=== PATIENT | male | born 1995 | race Caucasian/White ===

== ENCOUNTER 2017-06-05 22:25 | Emergency (ER) | payer OTHER ==
[2017-06-06] MEDS ORDERED: Lidocaine 1% PF 5 ML VIAL ONE (01:05)
[2017-06-06] MEDS ORDERED: Ibuprofen 600 MG TAB ONE (01:44)
== END 2017-06-06 01:58 | disposition home or self-care (01) ==
LOC: SCSER 22:25
DX: L03.012 Cellulitis of left finger (principal); L02.512 Cutaneous abscess of left hand
CPT/HCPCS: 26010; J2001